=== PATIENT | female | born 1965 | race Caucasian/White ===

== ENCOUNTER 2019-09-09 19:03 | Emergency (ER) | payer OTHER, SELFPAY ==
--- OUTSIDE RECORDS SUMMARY | 2019-09-09 19:06 | XMS REPORT ---
:1965 Author Organization [facility] Address [address] [place] [address] Care Team Providers Name Role Phone Unavailable Unavailable Unavailable Problems This patient has no known problems. Allergies, Adverse Reactions, Alerts This patient has no known allergies or adverse reactions. Medications This patient has no known medications. Results Test Description Test Time Test Comments Text Results Atomic Results Result Comments SCR MAMM BILATERAL ANGELO 2019-04-12 13:24:35 - SCR MAMM BILATERAL ANGELO CAD CAD DIGITAL DIGITALBILATERAL DIGITAL SCREENING MAMMOGRAM 3D/2D WITH CAD: 04/10/2019CLINICAL: Asymptomatic. Digital breast tomosynthesis was performed in addition to routine CC and MLO views. Current mammographic images were evaluated by either a [employer] M-Vu or a [employer] ImageChecker CAD (computer aided detection system). Comparison is made to exams dated 03/29/2018 mammogram - [facility], 01/31/2017 mammogram - [facility], and 03/04/2014 mammogram - [facility]. There are scattered fibroglandular tissues in both breasts. No suspicious mass, architectural distortion, malignant type calcification, or lymph node abnormality detected. Breast architecture is stable compared to prior exams.IMPRESSION: NEGATIVEThere is no mammographic evidence of malignancy. Resume annual screening mammography in one year. Valerie sweeney/penhernan:04/12/2019 13:24:35 Attending Technologist: Ciara Gonzalez MM, [facility] MammographyImaging Technologist: Morelia Garcia MM, [facility] sent: BIRADS 1-2 Normal Mammogram BI-RADS: 1 Negative
[2019-09-09] MEDS ORDERED: KETOROLAC 30 MG/ML INJ ONE (19:54)
[2019-09-09 20:13] LABS: Absolute Lymphocytes (CBC) 3.3 K/uL (0.7-4.9); Basophils % 0.1 % (0-1.3); Hematocrit 45.8 % (36.0-45.0); Lymphocytes % 37.1 % (15.3-44.8); MPV 8.7 fL (7.6-11.3); RBC Red Blood Cell Count 5.01 M/uL (3.86-4.86)
[2019-09-09 20:24] LABS: ALT/SGPT 19 U/L (12-78); AST/SGOT 17 U/L (15-37); Albumin 4.1 g/dL (3.4-5.0); Alkaline Phosphatase 121 U/L (45-117); BUN Blood Urea Nitrogen 12 mg/dL (7-18); Bicarbonate 23 mmol/L (21-32); Bilirubin Direct < 0.1 mg/dL (0-0.2); Bilirubin Total 0.3 mg/dL (0.2-1.0); Glucose Level 119 mg/dL (74-106); Lipase 179 U/L (73-393); Potassium 3.5 mmol/L (3.5-5.1); Protein, Total 7.9 g/dL (6.4-8.2); Sodium Level 141 mmol/L (136-145)
--- NOTE | 2019-09-09 20:26 | RAD REPORT ---
EXAM DESCRIPTION: CT - Stone Protocol - 09/09/2019 8:16 pm CLINICAL HISTORY: Left flank pain COMPARISON: November 2015 TECHNIQUE: Axial 5 mm thick images were obtained without oral or IV contrast. The [id number] span s the entirety of the system partially obscuring uppermost abdomen and lung bases. All CT scans are performed using dose optimization technique as appropriate and may include automated exposure control or mA/KV adjustment according to patient size. FINDINGS: Mild left-sided hydronephrosis secondary to a 3 millimeter distal left ureteral stone. Thi s is just proximal to the UVJ. A 2 millimeter nonobstructing calyx calcification present mid left kid radha. No right-sided hydronephrosis or calculi. No suspicious renal masses. Isodense masses and pyelon ephritis are not excluded on a stone protocol CT scan. No urinary bladder suspicious finding. No sign ificant adrenal finding. Uterus and ovaries show no suspicious findings. Imaged portions of the liver, spleen and pancreas show no suspicious findings on non-contrast imaging . No gallbladder or biliary tree abnormality identified. No suspicious bowel findings. No hernia, mass or bulky lymphadenopathy noted. No free air, free fluid or inflammatory stranding. No significant bony abnormality. IMPRESSION: Mild left-sided hydronephrosis secondary to a 3 mm distal left ureteral stone. Stone is just proximal to the UVJ. Isodense masses and pyelonephritis are not excluded on stone protocol technique.
[2019-09-09] MEDS ORDERED: NA CHLORIDE 0.9% 1,000 ML ONE (20:33)
[2019-09-09 20:42] LABS: Urine Blood 3+ (NEG); Urine Glucose NEGATIVE (NEG); Urine Protein 1+ (NEG); Urine Specific Gravity 1.025 (1.005-1.030)
[2019-09-09 20:42] LABS: Urine Blood 3+ (NEG); Urine Glucose NEGATIVE (NEG); Urine Protein 1+ (NEG); Urine Specific Gravity 1.025 (1.005-1.030)
--- NOTE | 2019-09-09 22:04 | ER ---
Nurse's Notes [facility] Name: Domenica Flores Age: 54 yrs Sex: Female : 1965 Arrival Date: 09/09/2019 Time: 19:07 Bed 14 Private MD: Diagnosis: Calculus of ureter Presentation: 09/09 19:12 Presenting complaint: Patient states: I think I am passing a kidney stone. i am having tl1 left flank pain that is now moving to my left side. Transition of care: patient was not received from another setting of care. Onset of symptoms was September 09, 2019. Risk Assessment: Do you want to hurt yourself or someone else? Patient reports no desire to harm self or others. Initial Sepsis Screen: Does the patient meet any 2 criteria? No. Patient's initial sepsis screen is negative. Does the patient have a suspected source of infection? No. Patient's initial sepsis screen is negative. Care prior to arrival: None. 19:12 Method Of Arrival: Wheelchair tl1 19:12 Acuity: JAZZMINE 3 tl1 Historical: - Allergies: 19:15 No Known Allergies; tl1 - Home Meds: 19:15 Effexor Oral [Active]; Ambien Oral [Active]; tl1 - PMHx: 19:15 Depression; tl1 - PSHx: 19:15 uterine ablasion; tl1 - Immunization history:: Adult Immunizations up to date. - Social history:: Smoking status: Patient uses tobacco products, smokes one-half pack cigarettes per day, Patient/guardian denies using alcohol, street drugs. - Ebola Screening: : Patient negative for fever greater than or equal to 101.5 degrees Fahrenheit, and additional compatible Ebola Virus Disease symptoms Patient denies exposure to infectious person Patient denies travel to an Ebola-affected area in the 21 days before illness onset. Screenin:00 Abuse screen: Denies threats or abuse. Nutritional screening: No deficits noted. jb4 Tuberculosis screening: No symptoms or risk factors identified. Fall Risk None identified. Assessment: 19:00 General: Appears in no apparent distress. uncomfortable, Behavior is cooperative, jb4 anxious. Pain: Complains of pain in left low back Pain does not radiate. Pain currently is 8 out of 10 on a pain scale. Quality of pain is described as stabbing. Neuro: Level of Consciousness is awake, alert, obeys commands, Oriented to person, place, time, situation. Cardiovascular: Patient's skin is warm and dry. Respiratory: Airway is patent Respiratory effort is even, unlabored, Respiratory pattern is regular, symmetrical. GI: No deficits noted. No signs and/or symptoms were reported involving the gastrointestinal system. : Reports pain in left flank(s), in lower back. EENT: No deficits noted. No signs and/or symptoms were reported regarding the EENT system. Derm: Skin is intact, Skin is pink, warm \T\ dry. Musculoskeletal: Circulation, motion, and sensation intact. Range of motion: intact in all extremities. 20:15 Reassessment: Patient appears in no apparent distress at this time. Patient and/or jb4 family updated on plan of care and expected duration. Pain level reassessed. Patient is alert, oriented x 3, equal unlabored respirations, skin warm/dry/pink. Patient states feeling better. 21:30 Reassessment: Patient appears in no apparent distress at this time. Patient and/or jb4 family updated on plan of care and expected duration. Pain level reassessed. Patient is alert, oriented x 3, equal unlabored respirations, skin warm/dry/pink. 22:32 Reassessment: Patient appears in no apparent distress at this time. Patient and/or jb4 family updated on plan of care and expected duration. Pain level reassessed. Patient is alert, oriented x 3, equal unlabored respirations, skin warm/dry/pink. Vital Signs: 19:13 BP 132 / 119; Pulse 99; Resp 22; Temp 98.2; Pulse Ox 99% ; Weight 77.11 kg; Height 5 tl1 ft. 1 in. (154.94 cm); Pain 8/10; 20:30 BP 126 / 81; Pulse 90; Resp 16; Pulse Ox 95% on R/A; jb4 21:15 BP 124 / 80; Pulse 92; Resp 16; Pulse Ox 97% on R/A; jb4 22:15 BP 133 / 92; Pulse 80; Resp 16; Pulse Ox 99% on R/A; jb4 19:13 Body Mass Index 32.12 (77.11 kg, 154.94 cm) tl1 ED Course: 19:00 Patient has correct armband on for positive identification. Placed in gown. Bed in low jb4 position. Call light in reach. Side rails up X 1. 19:07 Patient arrived in ED. cl3 19:12 Alec Paz MD is Attending Physician. tw4 19:13 Triage completed. tl1 19:15 Arm band placed on right wrist. tl1 19:15 Initial lab(s) drawn, by me, sent to lab. Inserted saline lock: 20 gauge in right jb4 antecubital area, using aseptic technique. Blood collected. 19:20 Aneudy Perez, RN is Primary Nurse. jb4 20:03 Basic Metabolic Panel Sent. jb4 20:04 CBC with Diff Sent. jb4 20:04 Creatinine for Radiology Sent. jb4 20:04 Hepatic Function Sent. jb4 20:04 Lipase Sent. jb4 20:14 CT completed. Patient tolerated procedure well. Patient moved to CT via wheelchair. la Patient moved back from CT. 20:16 CT Stone Protocol In Process Unspecified. EDMS 22:33 No provider procedures requiring assistance completed. IV discontinued, intact, jb4 bleeding controlled, No redness/swelling at site. Pressure dressing applied. Administered Medications: 19:58 Drug: TORadol 30 mg Route: IVP; Site: right antecubital; jb4 20:20 Follow up: Response: No adverse reaction; Pain is decreased jb4 20:34 Drug: NS 0.9% 1000 ml Route: IV; Rate: 1 bolus; Site: right antecubital; jb4 22:34 Follow up: Response: No adverse reaction; IV Status: Completed infusion jb4 22:19 Drug: morphine 4 mg {Note: Rass score 0.} Route: IVP; Site: right antecubital; jb4 22:34 Follow up: Response: No adverse reaction; Pain is decreased; RASS: Alert and Calm (0) jb4 Outcome: 22:03 Discharge ordered by . tw4 22:33 Discharged to home ambulatory, with family. jb4 22:33 Condition: stable 22:33 Discharge instructions given to patient, family, Instructed on discharge instructions, follow up and referral plans. medication usage, Demonstrated understanding of instructions, follow-up care, medications, Prescriptions given X 3. 22:35 Patient left the ED. jb4 Signatures: Dispatcher [employer] EDNE Emerita Marcos RN RN tl1 Aneudy Perez, RN RN jb4 Alhaji Rodriguez Terrence, MD MD tw4 Dheeraj Navarro cl3
--- NOTE | 2019-09-09 22:04 | EDPHYS ---
Physician Documentation [facility] Name: Domenica Flores Age: 54 yrs Sex: Female : 1965 Arrival Date: 09/09/2019 Time: 19:07 Bed 14 Private MD: ED Physician Alec Paz HPI: 09/09 20:04 This 54 yrs old Female presents to ER via Wheelchair with complaints of tw4 Possible Kidney Stone. 20:04 The patient complains of pain in the left mid back. The pain radiates to the left lower tw4 quadrant. Onset: The symptoms/episode began/occurred today. Modifying factors: The symptoms are alleviated by nothing. the symptoms are aggravated by nothing. The patient has not experienced similar symptoms in the past. Historical: - Allergies: 19:15 No Known Allergies; tl1 - Home Meds: 19:15 Effexor Oral [Active]; Ambien Oral [Active]; tl1 - PMHx: 19:15 Depression; tl1 - PSHx: 19:15 uterine ablasion; tl1 - Immunization history:: Adult Immunizations up to date. - Social history:: Smoking status: Patient uses tobacco products, smokes one-half pack cigarettes per day, Patient/guardian denies using alcohol, street drugs. - Ebola Screening: : Patient negative for fever greater than or equal to 101.5 degrees Fahrenheit, and additional compatible Ebola Virus Disease symptoms Patient denies exposure to infectious person Patient denies travel to an Ebola-affected area in the 21 days before illness onset. ROS: 20:05 Constitutional: Negative for fever, chills, and weight loss, Eyes: Negative for injury, tw4 pain, redness, and discharge, Cardiovascular: Negative for chest pain, palpitations, and edema, Respiratory: Negative for shortness of breath, cough, wheezing, and pleuritic chest pain, Abdomen/GI: Negative for abdominal pain, nausea, vomiting, diarrhea, and constipation, MS/Extremity: Negative for injury and deformity, Skin: Negative for injury, rash, and discoloration. Exam: 20:05 Constitutional: This is a well developed, well nourished patient who is awake, alert, tw4 and in no acute distress. Head/Face: Normocephalic, atraumatic. Eyes: Pupils equal round and reactive to light, extra-ocular motions intact. Lids and lashes normal. Conjunctiva and sclera are non-icteric and not injected. Cornea within normal limits. Periorbital areas with no swelling, redness, or edema. Chest/axilla: Normal chest wall appearance and motion. Nontender with no deformity. No lesions are appreciated. Cardiovascular: Regular rate and rhythm with a normal S1 and S2. No gallops, murmurs, or rubs. Normal PMI, no JVD. No pulse deficits. Respiratory: Lungs have equal breath sounds bilaterally, clear to auscultation and percussion. No rales, rhonchi or wheezes noted. No increased work of breathing, no retractions or nasal flaring. Abdomen/GI: Soft, non-tender, with normal bowel sounds. No distension or tympany. No guarding or rebound. No evidence of tenderness throughout. MS/ Extremity: Pulses equal, no cyanosis. Neurovascular intact. Full, normal range of motion. Neuro: Awake and alert, GCS 15, oriented to person, place, time, and situation. Cranial nerves II-XII grossly intact. Motor strength 5/5 in all extremities. Sensory grossly intact. Cerebellar exam normal. Normal gait. Vital Signs: 19:13 BP 132 / 119; Pulse 99; Resp 22; Temp 98.2; Pulse Ox 99% ; Weight 77.11 kg; Height 5 tl1 ft. 1 in. (154.94 cm); Pain 8/10; 20:30 BP 126 / 81; Pulse 90; Resp 16; Pulse Ox 95% on R/A; jb4 21:15 BP 124 / 80; Pulse 92; Resp 16; Pulse Ox 97% on R/A; jb4 22:15 BP 133 / 92; Pulse 80; Resp 16; Pulse Ox 99% on R/A; jb4 19:13 Body Mass Index 32.12 (77.11 kg, 154.94 cm) tl1 MDM: 19:13 Patient medically screened. tw4 09/10 00:19 Differential diagnosis: nephrolithiasis, pyelonephritis, UTI. Data reviewed: vital tw4 signs, nurses notes. Data reviewed: lab test result(s), CBC, white blood cell count, hemoglobin, hematocrit, platelets, radiologic studies, CT scan. Data interpreted: Pulse oximetry: Interpretation: normal. 09/09 19:35 Order name: Basic Metabolic Panel; Complete Time: 21:54 [facility] 09/09 21:54 Interpretation: Normal except: GLUC 119; GFR 50. [facility] 09/09 19:35 Order name: CBC with Diff; Complete Time: 21:54 [facility] 09/09 21:54 Interpretation: Normal except: RBC 5.01; HGB 15.3; HCT 45.8. [facility] 09/09 19:35 Order name: Creatinine for Radiology; Complete Time: 21:54 [facility] 09/09 21:54 Interpretation: Normal except: GFR 48. [facility] 09/09 19:35 Order name: Hepatic Function; Complete Time: 21:54 [facility] 09/09 21:55 Interpretation: Normal except: ALK 121; GLOB 3.8. [facility] 09/09 19:35 Order name: Lipase; Complete Time: 21:54 [facility] 09/09 21:55 Interpretation: Within normal limits: LIP 179. [facility] 09/09 20:14 Order name: Urine Dipstick--Ancillary (enter results); Complete Time: 21:54 ri 09/09 21:55 Interpretation: Normal except: UBLD 3+; UPROT 1+. [facility] 09/09 19:35 Order name: IV Saline Lock; Complete Time: 20:03 [facility] 09/09 19:35 Order name: Labs collected and sent; Complete Time: 20:03 [facility] 09/09 19:35 Order name: Urine Dipstick-Ancillary (obtain specimen); Complete Time: 20:35 [facility] 09/09 19:35 Order name: CT Stone Protocol; Complete Time: 21:54 [facility] 09/09 20:18 Order name: Urine Dipstick--Ancillary (enter results); Complete Time: 21:54 ri 09/09 21:55 Interpretation: Normal except: UBLD 3+; UPROT 1+. tw4 Administered Medications: 09/09 19:58 Drug: TORadol 30 mg Route: IVP; Site: right antecubital; jb4 20:20 Follow up: Response: No adverse reaction; Pain is decreased jb4 20:34 Drug: NS 0.9% 1000 ml Route: IV; Rate: 1 bolus; Site: right antecubital; jb4 22:34 Follow up: Response: No adverse reaction; IV Status: Completed infusion jb4 22:19 Drug: morphine 4 mg {Note: Rass score 0.} Route: IVP; Site: right antecubital; jb4 22:34 Follow up: Response: No adverse reaction; Pain is decreased; RASS: Alert and Calm (0) jb4 Disposition: 09/09/19 22:03 Discharged to Home. Impression: Calculus of ureter. - Condition is Stable. - Discharge Instructions: Kidney Stones, Renal Colic, [id number]-[id number], Kidney Stones, [id number]. - Prescriptions for Ibuprofen 800 mg Oral Tablet - take 1 tablet by ORAL route every 8 hours As needed take with food; 30 tablet. Zofran 4 mg Oral Tablet - take 1 tablet by ORAL route every 12 hours As needed; 6 tablet. Flomax 0.4 mg Oral Capsule, Sust. Release 24 hr - take 1 capsule by ORAL route once daily 1/2 hour following the same meal each day; 30 capsule. - Medication Reconciliation Form, Thank You Letter, Antibiotic Education, Prescription Opioid Use form. - Follow up: Private Physician; When: Upon discharge from the Emergency Department; Reason: Recheck today's complaints, Continuance of care. - Problem is new. - Symptoms have improved. Signatures: Dispatcher [employer] EDMS Emerita Marcos RN RN tl1 Aneudy Perez RN RN jb4 Alec Paz MD MD tw4 Corrections: (The following items were deleted from the chart) 22:35 22:03 09/09/2019 22:03 Discharged to Home. Impression: Calculus of ureter. Condition is jb4 Stable. Forms are Medication Reconciliation Form, Thank You Letter, Antibiotic Education, Prescription Opioid Use. Follow up: Private Physician; When: Upon discharge from the Emergency Department; Reason: Recheck today's complaints, Continuance of care. Problem is new. Symptoms have improved. tw4
[2019-09-09] MEDS ORDERED: MORPHINE 4 MG/ML SYR ONE (22:15)
[2019-09-09 23:05] VITALS: BP 133/92; O2SAT 99
== END 2019-09-09 22:35 | disposition home or self-care (01) ==
LOC: ER 19:03
DX: N20.1 Calculus of ureter (principal); F32.9 Major depressive disorder, single episode, unspecified; F17.210 Nicotine dependence, cigarettes, uncomplicated
CPT/HCPCS: 96361; 85025; 80048; 36415; 80076; 81003 ×2; 83690; 76377; 74176; 96375; 96374; 99284; J7030